=== PATIENT | female | born 1985 | race African-American/Black ===

== ENCOUNTER 2025-04-17 23:29 | Emergency (ER) | payer OTHER ==
[~2025-04-17] VITALS: Ht 170.2 cm; Wt 93.0 kg
[2025-04-17 23:39] VITALS: TEMP 36.9; O2SAT 100
[2025-04-18 00:31] LABS: BASOPHILS % 0.0 % (0.0-2.0); EOSINOPHILS % 2.7 % (0.0-5.0); HEMATOCRIT. 30.9 % (36.0-48.0); HEMOGLOBIN. 10.7 g/dL (12.0-16.0); LYMPHOCYTES % 24.7 % (20.0-50.0); MEAN PLATELET VOLUME 6.1 fl (7.4-10.4); MONOCYTES % 5.4 % (2.0-8.0); NEUTROPHILS % 67.2 % (40.0-76.0); RED BLOOD CELL COUNT 3.92 mill/uL (4.2-5.4); RED CELL DISTRIBUTION WIDTH 14.0 % (11.6-14.6)
[2025-04-18 00:39] LABS: CREATININE 1.0 mg/dL (0.6-1.0); UREA NITROGEN BLOOD 9 mg/dL (9-23)
[2025-04-18 00:44] LABS: TROPONIN I HIGH SENSITIVITY 6 ng/L (3.0-34)
[2025-04-18 01:32] LABS: PLATELET 57 x1000/uL (130-400)
[2025-04-18 03:53] LABS: TROPONIN I HIGH SENSITIVITY 6 ng/L (3.0-34)
[2025-04-18 06:00] VITALS: BP 142/91; PULSE 92; RESP 14; O2SAT 100
[2025-04-18] MEDS: SODIUM CHLORIDE 0.9% 1,000 ML IV ONE (06:03)
== END 2025-04-18 06:39 | disposition short-term general hospital (02) ==
LOC: ER 23:29 → CMPBEDREQ 04-18 07:28
DX: R55 Syncope and collapse (principal); I67.5 Moyamoya disease; I10 Essential (primary) hypertension; Z86.73 Personal history of transient ischemic attack (TIA), and cerebral infarction without residual deficits
CPT/HCPCS: 36415 ×2; 93005; 96360; 99285; 80048; 85025; 84484; 70450; J7030; Z7610 ×2